=== PATIENT | male | born 1980 | race African-American/Black ===

== ENCOUNTER 2016-06-08 15:51 | Emergency (ER) | payer SELFPAY ==
[~2016-06-08] VITALS: Ht 170.2 cm; Wt 81.1 kg
[2016-06-08 15:55] VITALS: BP 132/86
== END 2016-06-08 17:52 | disposition home or self-care (01) ==
LOC: ED 17:30
DX: M54.12 Radiculopathy, cervical region (principal); M79.622 Pain in left upper arm; R44.9 Unspecified symptoms and signs involving general sensations and perceptions; Z88.0 Allergy status to penicillin
CPT/HCPCS: 72050; 93005

== ENCOUNTER 2016-10-04 19:24 | Emergency (ER) | payer MEDICAID ==
[~2016-10-04] VITALS: Ht 170.2 cm; Wt 88.0 kg
[2016-10-04] MEDS ORDERED: ONDANSETRON 2MG/ML, 2ML IVPush ONE (20:00)
[2016-10-04] MEDS ORDERED: ONDANSETRON 2MG/ML, 2ML ONE (20:05)
[2016-10-04] MEDS ORDERED: MORPHINE SULFATE 4 MG/ML, 1ML ONE (20:05)
[2016-10-04] MEDS: MORPHINE SULFATE 4 MG/ML, 1ML IVPush PRN ×2 (20:08→21:33)
[2016-10-04 20:21] LABS: BLOOD UREA NITROGEN 14 mg/dL (7-18)
[2016-10-04] MEDS ORDERED: OMNIPAQUE 350 MG/ML, 75ML BOTTLE ONE (21:04)
[2016-10-04] MEDS ORDERED: HYDROmorphone 1 MG/ML, 1ML IV ONE (21:30)
[2016-10-04] MEDS ORDERED: HYDROmorphone 1 MG/ML, 1ML ONE (21:30)
[2016-10-04 21:45] VITALS: BP 142/89
== END 2016-10-04 22:17 | disposition home or self-care (01) ==
LOC: ED 22:00
DX: K04.7 Periapical abscess without sinus (principal)
CPT/HCPCS: 36415; 70487; 80048; 96374; 96375; 99285; J1170; J2405; Q9967

== ENCOUNTER 2019-10-11 07:57 | Emergency (ER) | payer MEDICAID ==
[~2019-10-11] VITALS: Ht 170.2 cm; Wt 77.9 kg
[2019-10-11 08:00] VITALS: BP 143/76
[2019-10-11] MEDS ORDERED: HYDROcodone/APAP 5/325 TABLET ONE (09:23)
[2019-10-11] MEDS ORDERED: HYDROcodone/APAP 5/325 TABLET PO ONE (09:30)
== END 2019-10-11 09:37 | disposition home or self-care (01) ==
LOC: ED 08:57
DX: K08.89 Other specified disorders of teeth and supporting structures (principal); F17.200 Nicotine dependence, unspecified, uncomplicated
CPT/HCPCS: 99283